=== PATIENT | female | born 1985 | race Caucasian/White ===

== ENCOUNTER 2022-07-10 14:26 | Emergency (ER) | payer OTHER ==
[2022-07-10] MEDS ORDERED: LIDOCAINE 1% INJ 10MG/ML (20 ML MDV) SQ ONE (16:16)
[2022-07-10] MEDS ORDERED: cefTRIAXone 1,000 MG VIAL (IM USE) IM STA (16:16)
[2022-07-10] MEDS ORDERED: KETOROLAC 15 MG/ML 1 ML VIAL IM STA (16:17)
--- NOTE | 2022-07-10 17:06 | ED ---
Animal Bite HPI - General Chief Complaint: Animal Bite Stated Complaint: dog bite at work Time Seen by Provider: 07/10/22 16:14 Source: patient, RN notes reviewed Mode of arrival: ambulatory Limitations: no limitations - History of Present Illness Initial Comments: Patient is a 37-year-old female presents to the emergency room with complaints of being attacked by 3 dogs when she went to visit a client earlier today. She reports that one of the ducts but her in the arm and the other put her in the back of the thigh. 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 She has 2 small deep puncture wounds to her right forearm and small puncture wounds to her left posterior thigh she denies any excessive bleeding from the lesions or any purulent drainage. She immediately came to the emergency room after the event. She denies any head trauma when she was knocked down by the animals. She denies any chest pain, shortness of breath, abdominal pain, nausea, vomiting, fevers or chills. She denies any significant past medical history. - Related Data Previous Rx's Medication Instructions Recorded Amoxicillin 875 mg PO Q12HR 10 Days #20 tablet 07/10/22 Allergies Allergy/AdvReac Type Severity Reaction Status Date / Time No Known Allergies Allergy Verified 07/10/22 14:36 Review of Systems ROS Statement: Those systems with pertinent positive or pertinent negative responses have been documented in the HPI. ROS Other: All systems not noted in ROS Statement are negative. Past Medical History Past Medical History: No Reported History History of Any Multi-Drug Resistant Organisms: None Reported Past Surgical History: No Surgical Hx Reported Past Psychological History: No Psychological Hx Reported Smoking Status: Never smoker Past Alcohol Use History: Occasional Past Drug Use History: None Reported General Exam Limitations: no limitations General appearance: alert, in no apparent distress Head exam: Present: atraumatic, normocephalic, normal inspection Eye exam: Present: normal appearance, PERRL, EOMI. Absent: scleral icterus, conjunctival injection, periorbital swelling ENT exam: Present: normal exam, mucous membranes moist Neck exam: Present: normal inspection. Absent: tenderness, meningismus, lymphadenopathy Respiratory exam: Absent: respiratory distress, accessory muscle use Extremities exam: Present: full ROM. Absent: pedal edema, joint swelling Back exam: Present: normal inspection Neurological exam: Present: alert, oriented X3, CN II-XII intact Psychiatric exam: Present: normal affect, normal mood Skin exam: Present: other (Small laceration puncture wound to the right hand and right forearm with some scant bleeding. Superficial abrasions to right posterior thigh no evidence of deep puncture wound.) Course Vital Signs 07/10/22 14:36 Pulse Rate 91 Respiratory 18 Rate Blood Pressure 120/81 O2 Sat by Pulse 99 Oximetry Procedures - Laceration Laceration #1 Indication: laceration Site: upper extremity Size (cm): 1 Description: linear Depth: simple, single layer Anesthetic Used: lidocaine 1% Anesthesia Technique: local infiltration Type of Sutures: nylon Size of Sutures: 4-0 Number of Sutures: 1 Technique: simple, interrupted Patient Tolerated Procedure: well, no complications Laceration #2 Indication: laceration Site: upper extremity Size (cm): 1 (1.5) Description: irregular Anesthetic Used: lidocaine 1% Anesthesia Technique: local infiltration Size of Sutures: 4-0 Number of Sutures: 1 Technique: simple, interrupted Patient Tolerated Procedure: well, no complications Medical Decision Making - Medical Decision Making No significant trauma needing diagnostic imaging. No laboratory studies needed at this time. Will give dose of IM antibiotics and placed on oral antibiotics. Puncture wound to right arm 2 replace suture in both laceration/punctures. 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 Puncture wound 2 to right forearm close with single sutures; tolerated well. Advised localized wound care. IM Rocephin given along with Toradol to help with pain. Will give empiric course of Augmentin as well. Advise follow-up with her primary care provider along with her in regards to work comp as dog attack happened while making a home visit. Follow-up in 7-10 days for suture removal. Monitor for signs and symptoms of infection. Case discussed with Dr. Monroy Disposition Clinical Impression: Bite by animal Disposition: HOME SELF-CARE Condition: Stable Instructions (If sedation given, give patient instructions): Animal Bite (ED) Additional Instructions: Please continue localized skin care. Sutures to right hand and right forearm should be removed by your primary care provider or the emergency room in 7-10 days. Utilize ibuprofen or Tylenol [id number] as needed for pain. A course of antibiotics was prescribed to prevent any possible infection from the animal bites. Please complete the course of antibiotics as prescribed. Please return to the Emergency Department if symptoms worsen or any other concerns. Prescriptions: Amoxicillin 875 mg PO Q12HR 10 Days #20 tablet Is patient prescribed a controlled substance at d/c from ED?: No Referrals: None,Stated [Primary Care Provider] - 1-2 days Time of Disposition: 17:09
[2022-07-10 18:05] VITALS: BP 109/77; PULSE 73; RESP 16; TEMP 98.2
== END 2022-07-10 18:05 | disposition home or self-care (01) ==
LOC: EC 14:26
DX: S51.811A Laceration without foreign body of right forearm, initial encounter (principal); W54.0XXA Bitten by dog, initial encounter
CPT/HCPCS: 12001; 96372; 99283

== ENCOUNTER → 2024-01-05 | Outpatient (CLI) | payer BC ==
--- NOTE | 2024-01-05 13:23 | MM ---
Reason for Exam: Screening (asymptomatic). Baseline mammogram. Patient History: Menarche at age 10. First Full-Term at age 26. Premenopausal. Last menstrual period: 12/22/2023 Risk Values: Stephanie 5 year model risk: 0.6%. NCI Lifetime model risk: 11.1%. Prior Study Comparison: Patient's first Mammogram. Tissue Density: The breast tissue is almost entirely fat. Findings: Analyzed By CAD. Asymmetry right breast 38 mm from the nipple on MLO view measuring 9 mm. Left breast: There is no suspicious group of microcalcifications or new suspicious mass. Overall Assessment: Incomplete: need additional imaging evaluation, BI-RAD 0 Management: Diagnostic Mammogram of the right breast. [facility] will attempt to contact patient to return for supplemental views and ultrasound if indicated. Patient should continue monthly self-breast exams. A clinical breast exam by your physician is recommended on an annual basis. This exam should not preclude additional follow-up of suspicious palpable abnormalities. Note on Stephanie scores and lifetime risk: 1. A Stephanie score greater than 3% is considered moderate risk. If this is the case, consider specialist referral to assess eligibility for a risk reducing agent. 2. If overall lifetime risk for the development of breast cancer is 20% or higher, the patient may qualify for future screening with alternating mammogram and breast MRI. Electronically signed and approved by: Kris Bernal DO
== END | disposition home or self-care (01) ==
LOC: RADMAMWWP 10:20
PROVIDERS: ATTEND Family Medicine
DX: Z12.31 Encounter for screening mammogram for malignant neoplasm of breast (principal)
CPT/HCPCS: 77067

== ENCOUNTER → 2024-01-12 | Outpatient (CLI) | payer BC ==
--- NOTE | 2024-01-12 10:46 | MM ---
Reason for Exam: Additional evaluation requested from abnormal screening. Last screening mammogram was performed less than 1 month ago. Patient History: Menarche at age 10. First Full-Term at age 26. Premenopausal. Risk Values: Stephanie 5 year model risk: 0.6%. NCI Lifetime model risk: 11.1%. Prior Study Comparison: 01/05/2024 Bilateral MG screening mammo w CAD, [facility]. Tissue Density: Right: There are scattered fibroglandular densities. Findings: Analyzed By CAD. The 12:00 anterior focal asymmetry disperses on additional views compatible with superimposition shadow. Overall Assessment: Benign, BI-RAD 2 Management: Screening Mammogram of both breasts in 1 year. . Results were given to the patient verbally at the time of exam. Patient should continue monthly self-breast exams. A clinical breast exam by your physician is recommended on an annual basis. This exam should not preclude additional follow-up of suspicious palpable abnormalities. Note on Stephanie scores and lifetime risk: 1. A Stephanie score greater than 3% is considered moderate risk. If this is the case, consider specialist referral to assess eligibility for a risk reducing agent. 2. If overall lifetime risk for the development of breast cancer is 20% or higher, the patient may qualify for future screening with alternating mammogram and breast MRI. Electronically signed and approved by: Adam Rocha M.D. Radiologist
== END | disposition home or self-care (01) ==
LOC: RADMAMWWP 10:11
PROVIDERS: ATTEND Family Medicine
DX: R92.321 Mammographic fibroglandular density, right breast (principal)
CPT/HCPCS: 77061; 77065

== ENCOUNTER → 2025-05-13 | Outpatient (CLI) | payer BC ==
--- NOTE | 2025-05-13 14:16 | MM ---
Reason for Exam: Screening (asymptomatic). Last mammogram was performed 1 year(s) and 4 month(s) ago. Patient History: Menarche at age 10. First Full-Term at age 26. Premenopausal. Risk Values: Stephanie 5 year model risk: 0.7%. NCI Lifetime model risk: 10.9%. Prior Study Comparison: 01/05/2024 Bilateral MG screening mammo w CAD, [facility]. 01/12/2024 Right MG 3D work up w/cad RT, [facility]. Tissue Density: There are scattered areas of fibroglandular density. Findings: Analyzed By CAD. There is no suspicious group of microcalcifications or new suspicious mass in either breast. Stable well-circumscribed subcentimeter nodularity left breast is stable asymmetric density right breast unchanged from prior exam. Overall Assessment: Benign, BI-RAD 2 Management: Screening Mammogram of both breasts in 1 year. . Patient should continue monthly self-breast exams. A clinical breast exam by your physician is recommended on an annual basis. This exam should not preclude additional follow-up of suspicious palpable abnormalities. Note on Stephanie scores and lifetime risk: 1. A Stephanie score greater than 3% is considered moderate risk. If this is the case, consider specialist referral to assess eligibility for a risk reducing agent. 2. If overall lifetime risk for the development of breast cancer is 20% or higher, the patient may qualify for future screening with alternating mammogram and breast MRI. [facility], , 05/13/2025 2:13 PM. Electronically signed and approved by: Geoffrey Skinner M.D. Radiologis
== END | disposition home or self-care (01) ==
LOC: RADMAMWWP 13:47
PROVIDERS: ATTEND Family Medicine
DX: Z12.31 Encounter for screening mammogram for malignant neoplasm of breast (principal); R92.323 Mammographic fibroglandular density, bilateral breasts
CPT/HCPCS: 77063; 77067